=== PATIENT | female | born 1960 | race Caucasian/White ===

== ENCOUNTER 2019-12-02 05:51 | Day surgery (SDC) | payer MEDICARE, SELFPAY ==
--- NOTE | 2019-11-27 14:39 | EKG12_ITS ---
Test Reason : PRE OP Blood Pressure : / mmHG Vent. Rate : 067 BPM Atrial Rate : 067 BPM P-R Int : 178 ms QRS Dur : 088 ms QT Int : 452 ms P-R-T Axes : 026 020 030 degrees QTc Int : 477 ms Normal sinus rhythm Normal ECG Confirmed by JOSE EDUARDO ALEXANDER, LAKESHIA ([id number]), book or script editor LUKE PÉREZ ([id number]) on 12/02/2019 2:09:58 PM Referred By: Jason Higuera Confirmed By:LAKESHIA WHITT MD
[2019-11-27 15:00] LABS: Hematocrit 47.6 % (37-47); Hemoglobin 15.2 g/dL (12.0-15.0); Mean Corp Hgb Conc 31.9 g/dL (32-36); Mean Corpuscular Hgb 27.8 pg (27.0-32.0); Mean Corpuscular Volume 87.2 fL (81-99); Mean Platelet Vol. 9.7 fl (6.2-12.0); Platelet Count 497 K/mm3 (150-450); RBC Distribution Width CV 13.9 % (11.6-14.6); RBC Distribution Width SD 43.6 fl (35.1-43.9); Red Blood Count 5.46 M/mm3 (4.2-5.4); White Blood Count 11.5 K/mm3 (4.4-11.0)
[2019-11-27 15:28] LABS: Anion Gap 8 (5-15); BUN 21 mg/dL (7-18); BUN/Creat Ratio 18.4 RATIO (10-20); Calcium,Total 9.1 mg/dL (8.5-10.1); Chloride 105 mmol/L (98-107); Creatinine, Serum 1.14 mg/dL (0.55-1.02); EST Glomerular Filtration Rate 52 mL/min (>60); Est Glom Filt Rate - Afr Amer 63 mL/min (>60); Glucose 190 mg/dL (74-106); Potassium 3.6 mmol/L (3.5-5.1); Sodium Level 139 mmol/L (136-145)
[2019-12-02] VITALS (8 sets, daily range): BP systolic 126–144; BP diastolic 57–75; PULSE 65–75; RESP 16; TEMP 36.1–36.6; O2SAT 92–98; BMI 34.4
[2019-12-02] MEDS: Lactated Ringers 1,000 ML 100 ML IV (06:27)
[2019-12-02 06:50] LABS: Bedside Glucose 206 mg/dL (70-110)
--- NOTE | 2019-12-02 07:30 | PCM.DC ---
You will use the following diet at home:: No restrictions Your food should be the consistency of: Regular Discharge Activity: May not drive while taking narcotic pain medications. Call your doctor if your incision/area has: Increased Pain/ Swelling Additional Dressing/Incision Instructions:: do not get [place] cap wet until seen in clinic. mupirocin to incision twice daily. Allergies/Adverse Reactions: Allergies banana Allergy (Verified 12/02/19 06:13) Swelling coconut Allergy (Verified 12/02/19 06:13) Swelling insulin detemir [From Levemir U-100 Insulin] Allergy (Verified 12/02/19 06:13) Hives Penicillins Allergy (Verified 12/02/19 06:13) Hives Medications to take at Discharge Albuterol IH (ProAir) [Proair Hfa (SP)Vent Pts] 1 - 2 puff INHALATION Q6H PRN PRN 11/28/19 Amlodipine Besylate [Norvasc] 10 mg PO DAILY 11/28/19 Aspirin [Aspirin EC] 325 mg PO DAILY 11/28/19 Atorvastatin Calcium [Lipitor] 80 mg PO QHS 11/28/19 Brinzolamide [Azopt] 1 drp EACH EYE BID 11/28/19 Clopidogrel Bisulfate [Plavix] 75 mg PO DAILY 11/28/19 Dapagliflozin Propanediol [Farxiga] 10 mg PO DAILY 11/28/19 Flash Glucose Scanning [place] [Freestyle Sarah 14 Day [place]] 1 ea MC DAILY 11/28/19 Fluticasone Propionate [Flovent Diskus] 2 puff INHALATION DAILY 11/28/19 Insulin Degludec [Tresiba Flextouch U-200] 42 unit SQ DAILY 11/28/19 Metoprolol Tartrate [Lopressor (Beta Cesar)] 100 mg PO BID 11/28/19 Travoprost [Travatan Z] 1 drp OP DAILY 11/28/19 Triamterene/Hydrochlorothiazid [Triamterene-Hctz 37.5-25 mg Cp] 1 tab PO DAILY 11/28/19 Novolog Mix 70-30 Flexpen Syrn 12/02/19 Primary Care Physician: Jose De Jesus Agosto MD [Primary Care Provider] - Test Results: Test results from this visit will be discussed in further detail at your follow-up appointment, if applicable. Please Follow Up With: Jason Higuera MD When: 1 week
--- NOTE | 2019-12-02 07:35 | PCM.OPRPT ---
Problem List (1) Sensorineural hearing loss (SNHL) of left ear Status: Chronic Report of Operation Date of Procedure: 12/02/19 Pre-Operative Diagnosis: sensorineural hearing loss, left Post-Operative Diagnosis: sensorineural hearing loss, left Surgery/Procedure Performed:: osseointegrated implant, left Type of Anesthesia:: General Description of Procedure: on the day of the procedure, after appropriate informed consent was obtained, the patient was brought to the operating room and placed in supine position on the operating table. she was placed under general endotracheal anesthesia by the anesthesiologist. the LMA was secured, the eyes were taped. the table was rotated 90 degrees toward the surgeon. the postauricular area 5.5 cm superoposterior to the left ear was marked. the area was shaved. a 22g needle measured 7mm skin thickness. thus, a 10mm abutment was chosen. the area was injected with lidocaine/epinephrine. it was prepped/draped in sterile fashion. a 3cm incision was made anterior to the abutment angelica with a 15 blade. the periosteum was exposed and incised with a 15 blade in a cruciate fashion. the periosteum was swept away with the raspatorium. using the 3mm conical drill, a hole was created. no dura was palpated. the guard was removed and a 4mm conical hole was drilled. a 4mm countersink bit was used and drilled. copious saline was used during all drilling. a 4mm implant with 10mm abutment was selected and placed using the correct drill settings. this was firmly in place. the skin was closed with 3-0 prolene. the abutment was exposed with a 5mm punch biopsy. an allevyn dressing was placed with the healing cap. the patient was awoken from anesthesia and transferred to the PACU in stable condition.
[2019-12-02 09:06] LABS: Bedside Glucose 189 mg/dL (70-110)
== END 2019-12-02 10:13 | disposition home or self-care (01) ==
LOC: SDC 05:52 → AC 05:53
PROVIDERS: PCP Family Medicine; Referring Provider Otolaryngology; Visit Provider Otolaryngology
PROC: (CPT 69710; principal; 2019-12-02 07:15)
DX: H90.42 Sensorineural hearing loss, unilateral, left ear, with unrestricted hearing on the contralateral side (principal); I10 Essential (primary) hypertension; E78.00 Pure hypercholesterolemia, unspecified; E11.9 Type 2 diabetes mellitus without complications; D68.51 Activated protein C resistance; J45.909 Unspecified asthma, uncomplicated; G47.30 Sleep apnea, unspecified; Z79.899 Other long term (current) drug therapy; Z79.4 Long term (current) use of insulin; Z86.718 Personal history of other venous thrombosis and embolism; Z87.891 Personal history of nicotine dependence; Z91.19 Patient's noncompliance with other medical treatment and regimen; Z11.59 Encounter for screening for other viral diseases; Z86.73 Personal history of transient ischemic attack (TIA), and cerebral infarction without residual deficits
CPT/HCPCS: 69714; 36415; 80048; 82962; 85027; 87635; 93005; G2023; J7120; J2405; U0004

== ENCOUNTER → 2023-09-20 | Outpatient (CLI) | payer MEDICARE, SELFPAY ==
[2023-09-20 13:42] LABS: Amphetamine Urine VISTA NEGATIVE (<1000 ng/mL); Barbiturate Urine VISTA NEGATIVE (< 200 ng/mL); Benzodiazepine Urine VISTA NEGATIVE (< 200 ng/mL); Cocaine Urine VISTA POSITIVE (< 300 ng/mL); Ecstacy Urine VISTA NEGATIVE (< 500 ng/mL); Methadone Urine VISTA NEGATIVE (< 300 ng/mL); PCP Urine VISTA NEGATIVE (< 25 ng/mL); THC Urine VISTA POSITIVE (< 50 ng/mL); Vista UDS pH Range 5
== END | disposition home or self-care (01) ==
LOC: LAB 12:05
PROVIDERS: PCP Family Medicine; Visit Provider Anesthesiology
DX: F11.20 Opioid dependence, uncomplicated (principal)
CPT/HCPCS: 80307

== ENCOUNTER → 2024-02-13 | Outpatient (CLI) | payer MEDICARE, SELFPAY ==
--- NOTE | 2024-02-13 12:32 | BI_ITS ---
MAMMOGRAPHY - BILATERAL SCREENING REASON FOR EXAM: Female, 63 years old. Routine annual screening examination. PERTINENT HISTORY: TECHNIQUE: Digital bilateral breast jessica (3D mammographic acquisition) in the CC and MLO projections. 2-D mediolateral oblique (MLO) and craniocaudad (CC) views of both breasts were obtained. CAD: Full Field Digital Mammography with Computer Added Detection was performed. COMPARISON: Comparison is made with prior outside examination dated January 30, 2023. FINDINGS: Breast Composition: The breasts are heterogeneously dense, which may obscure small masses. There are no dominant masses or suspicious calcifications. Stable bilateral fat-containing axillary lymph nodes. Stable bilateral secretory calcifications. No other significant abnormalities are identified. There has been no significant change since the prior study. BI/SCRN MAMM (CAD)W/JESSICA BILAT IMPRESSION: Stable bilateral screening mammogram. Yearly follow-up mammogram recommended. (A) ASSESSMENT CATEGORY: BIRADS Category 2: Benign. A letter regarding these results will be sent to the patient by the facility within 30 days. Approximately 10% of breast cancers are not detected by mammography. A normal mammogram should not delay biopsy of a clinically suspicious abnormality. [id number] Electronically Signed: Julio Zavala MD at 13:27 EDT ,
== END | disposition home or self-care (01) ==
LOC: OPBI 12:30
PROVIDERS: PCP Family Medicine; Referring Provider Family Medicine; Visit Provider Family Medicine
DX: Z12.31 Encounter for screening mammogram for malignant neoplasm of breast (principal)
CPT/HCPCS: 77063; 77067